=== PATIENT | male | born 1970 | race Caucasian/White ===

== ENCOUNTER 2018-01-01 11:40 | Emergency (ER) | payer SELFPAY ==
[2018-01-01 11:57] VITALS: BP 142/86
[2018-01-01] MEDS ORDERED: Tetan/Diph/Pertus SYR(Tdap)* 0.5 ML SYR(BOOSTRIX) use SYR IM ONE (12:00)
[2018-01-01] MEDS ORDERED: Lidocaine 2% PF * 5 ML VIAL INJ ONE (12:02)
--- NOTE | 2018-01-01 12:29 | UC ---
Laceration HPI - HPI Summary HPI Summary: Pt presents with laceration to left dorsal hand. 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 He sustained a laceration at the base of his 4th-5th digits of his dorsal left hand. Unsure date of last tetanus. - History Of Current Complaint Chief Complaint: UCLaceration Stated Complaint: HAND LAC Time Seen by Provider: 01/01/18 12:00 Hx Obtained From: Patient Laceration Location: Hand Mechanism Of Injury: Sharp Trauma Onset/Duration: Sudden Onset Severity: Mild Pain Intensity: 1 Pain Scale Used: 0-10 Numeric - Allergies/Home Medications Allergies/Adverse Reactions: Allergies Allergy/AdvReac Type Severity Reaction Status Date / Time No Known Allergies Allergy Verified 01/01/18 11:57 Home Medications: Home Medications NK [No Home Medications Reported] 01/01/18 [History Confirmed 01/01/18] PMH/Surg Hx/FS Hx/Imm Hx - Additional Past Medical History Additional PMH: None Previously Healthy: Yes - Surgical History Surgical History: None - Family History Known Family History: Positive: Cardiac Disease - [place] (brother at age 51) - Social History Occupation: Employed Full-time Lives: With Family Alcohol Use: Daily Alcohol Amount: 2 on weekdays, 5-6 on weekends Substance Use Type: None Smoking Status (MU): Heavy Every Day Tobacco Smoker Type: Cigarettes Amount Used/How Often: 1/3 ppd Household Exposure Type: Cigarettes Review of Systems Constitutional: Negative Skin: Other - Laceration left hand Respiratory: Negative Cardiovascular: Negative Gastrointestinal: Negative Neurovascular: Negative Neurological: Negative Psychological: Negative All Other Systems Reviewed And Are Negative: Yes Physical Exam - Summary Physical Exam Summary: GENERAL: NAD. WDWN. No pain distress. SKIN: 2.0cm linear laceration to left dorsal hand at base of 4th-5th digits. Mild subcutaneous tissue exposed. No tendon involvement. No FB NECK: Supple. Nontender. No lymphadenopathy. CHEST: No accessory muscle use. Breathing comfortably and in no distress. CV: RRR. Without m/r/g. Pulses intact radial and ulnar. MSK: FROM left hand and all finger. NEURO: Alert. Sensations intact hand and all fingers. PSYCH: Age appropriate behavior. Triage Information Reviewed: Yes Vital Signs: Initial Vital Signs Temp 98.6 F 05/02/18 11:54 Pulse 102 01/01/18 11:54 Resp 18 01/01/18 11:54 BP 142/86 01/01/18 11:54 Pulse Ox 99 01/01/18 11:54 Laceration Repair - Laceration Repair 1 Description: Linear Laceration Size After Repair: Length (cm) - 2.0 Modified For Repair: No Anesthesia Used: 2.0% Lido Irrigation With Pressure Irrigation Device: Yes Closure Material: Sutures Closure Method: Single Layer Suture Of: Skin Suture Type: Nylon Laceration Course/Dx - Course/Dx Course Of Treatment: A time out was performed, witnessed, and signed. The area was irrigated with 500mL sterile saline. 3mL of 2% lidocaine without epi was administered and good anesthetization was achieved. In the usual sterile fashion , FIVE 6-0 nylon sutures were placed. The wound was bandaged. Pt tolerated procedure well. tdap updated today. - Differential Dx - Laceration/Wound Provider Diagnoses: Laceration left hand Discharge - Sign-Out/Discharge Documenting (check all that apply): Discharge/Admit/Transfer - Discharge Plan Condition: Stable Disposition: HOME Patient Education Materials: Care For Your Stitches (ED), Laceration (DC) Referrals: Vic Sigala ATHLETIC COORDINATOR [Primary Care Provider] - Additional Instructions: If you develop a fever, shortness of breath, chest pain, new or worsening symptoms - please call your PCP or go to the ED. Your blood pressure was high at todays visit. Please see your primary provider within 4 weeks for recheck and re-evaluation. 1) Please keep the area bandaged, clean, dry, and intact for the next 24- 48hours. 2) If you develop a fever, colored or thick discharge, increased pain or swelling - please call your PCP or go to the ED. 3) Please return in 10-14 days to have your FIVE sutures removed. - Billing Disposition and Condition Condition: STABLE Disposition: HOME
== END 2018-01-01 12:35 | disposition home or self-care (01) ==
LOC: UCEAST 11:40
DX: S61.412A Laceration without foreign body of left hand, initial encounter (principal); W26.8XXA Contact with other sharp object(s), not elsewhere classified, initial encounter; Y93.89 Activity, other specified; Y92.009 Unspecified place in unspecified non-institutional (private) residence as the place of occurrence of the external cause; Z23 Encounter for immunization; F17.210 Nicotine dependence, cigarettes, uncomplicated
CPT/HCPCS: 12001; 12002; 90715; 99211; G0463

== ENCOUNTER 2019-10-02 11:09 | Emergency (ER) | payer OTHER ==
[2019-10-02 11:55] VITALS: BP 131/88
--- NOTE | 2019-10-02 12:31 | UC ---
Headache HPI - HPI Summary HPI Summary: 49 year old male with no PMH presents with headache, intermittent x months, ~4. Was seen by PCP, no imaging which patient is very concerned by. He thinks this may be due to a tumor. Pain is typically behind eyes/ above eyes, sometimes in middle of head. can last for minutes or hours. mild to severe. no lightheadedness, dizziness, no motor/ speech deficits, no memory problems. Gait normal. Treated with OTC meds without success. no vision changes. - History Of Current Complaint Chief Complaint: UCHeadache Stated Complaint: HEADACHE, DIZZY 6 DAYS Time Seen by Provider: 10/02/19 12:31 Hx Obtained From: Patient, Family/Cash Room Clerk - Onset/Duration: Sudden Onset, Lasting Weeks - ! 4 months Onset Of Symptoms: Sudden, Still Present Initially Headache Was: "Worst Headache Ever" Currently Pain Is: Moderate Pain Intensity: 8 Pain Scale Used: 0-10 Numeric Timing: Intermittent, Lasting:, Minutes, Hours Character: Sharp, Dull, Throbbing, Pressure Location of Headache: Frontal Aggravating Factor(s): Nothing Allevating Factor(s): Nothing Associated Signs And Symptoms: Positive: Sinus Pressure. Negative: Dizziness, Seizure, Nausea, Vomiting, Fever, Neck Pain, Neck Stiffness, Decreased LOC, Visual Changes - Allergies/Home Medications Allergies/Adverse Reactions: Allergies Allergy/AdvReac Type Severity Reaction Status Date / Time No Known Allergies Allergy Verified 10/02/19 11:49 PMH/Surg Hx/FS Hx/Imm Hx - Surgical History Surgical History: None - Family History Known Family History: Positive: Cardiac Disease - [place] (brother at age 51) - Social History Alcohol Use: Daily Alcohol Amount: 2-3 beers on weekdays, 5-6 on weekends Substance Use Type: None Smoking Status (MU): Heavy Every Day Tobacco Smoker Type: Cigarettes Amount Used/How Often: 1/2 ppd Length of Time of Smoking/Using Tobacco: 30 years Household Exposure Type: Cigarettes Review of Systems All Other Systems Reviewed And Are Negative: Yes Constitutional: Negative: Fever, Chills, Fatigue Eyes: Negative: Blurred Vision, Drainage, Photophobia ENT: Positive: Sinus Pain/Tenderness. Negative: Sore Throat, Ear Ache, Nasal Discharge, Sinus Congestion Respiratory: Positive: Negative Musculoskeletal: Positive: Negative Neurological/Mental Status: Positive: Headache. Negative: Weakness, Paresthesia , Numbness Psychological: Positive: Anxious Is Patient Immunocompromised?: No Physical Exam Triage Information Reviewed: Yes Appearance: Well-Appearing, No Pain Distress, Well-Nourished Vital Signs: Initial Vital Signs Temp 98.6 F 10/02/19 11:49 Pulse 91 10/02/19 11:49 Resp 18 10/02/19 11:49 BP 131/88 10/02/19 11:49 Pulse Ox 96 10/02/19 11:49 Vital Signs Reviewed: Yes Eyes: Positive: Conjunctiva Clear, Other: - EMOI, PERRLA. nose to finger, nose to nose intact.. Negative: Conjunctiva Inflamed, Discharge ENT: Positive: Pharynx normal, TMs normal, Sinus tenderness - frontal b/l mild. Negative: Tonsillar swelling, Tonsillar exudate, Uvula midline Neck: Positive: Supple, Nontender, No Lymphadenopathy. Negative: Nuchal Rigidity, Enlarged Nodes @ Respiratory: Positive: Chest non-tender, Lungs clear, Normal breath sounds, No respiratory distress, No accessory muscle use. Negative: Respiratory distress, Crackles, Rhonchi, Stridor, Wheezing Cardiovascular: Positive: RRR, No Murmur, Pulses Normal - radial ulnar b/l 2+ Musculoskeletal: Positive: Strength Intact, ROM Intact Neurological: Positive: Alert, Muscle Tone Normal, Other: - neg rhomberg, toe to hell walking normal, able to sand on one foot b/l, heel up trotter intact Psychological: Positive: Normal Response To Family Headache Course/Dx - Course Course Of Treatment: CT- + for sinus, neg for brain disease - Naproxen as needed for pain, inflammation - ANtibiotic as directed - Increase fluid intake - Stop smoking - Over the counter antihistamines to help with inflammation - Follow up with ENT if no improvement within 2-3 days. May require longer antibiotics treatment - Differential Dx/Diagnosis Provider Diagnosis: Sinus headache Discharge ED - Sign-Out/Discharge Documenting (check all that apply): Patient Departure All imaging exams completed and their final reports reviewed: Yes - Discharge Plan Condition: Good Disposition: HOME Prescriptions: Amoxicillin/Clavulanate TAB* [Augmentin TAB 875*] 875 mg PO BID #20 tab Patient Education Materials: Analgesic/Antihistamine/Decongestant (By mouth), Sinusitis (ED) Referrals: Giselle Jean MD [Primary Care Provider] - Jeff Campoverde MD [Medical Doctor] - (ENT physician ear nose throat ) Additional Instructions: - Naproxen as needed for pain, inflammation - ANtibiotic as directed - Increase fluid intake - Stop smoking - Over the counter antihistamines to help with inflammation - Follow up with ENT if no improvement within 2-3 days. May require longer antibiotics treatment - Billing Disposition and Condition Condition: GOOD Disposition: Home
== END 2019-10-02 13:40 | disposition home or self-care (01) ==
LOC: UCEAST 11:09
DX: R51 Headache (principal); J32.0 Chronic maxillary sinusitis; F17.210 Nicotine dependence, cigarettes, uncomplicated
CPT/HCPCS: 70450; 99212; G0463